=== PATIENT | male | born 1990 | race Caucasian/White ===

== ENCOUNTER 2017-08-08 06:37 | Emergency (ER) | payer SELFPAY ==
[~2017-08-08] VITALS: Ht 175.3 cm; Wt 88.0 kg
[2017-08-08 06:39] VITALS: BP 121/64; PULSE 97; RESP 15; TEMP 98.6; O2SAT 98
== END 2017-08-08 07:20 | disposition left against medical advice (07) ==
LOC: NEPE 06:37
DX: R10.9 Unspecified abdominal pain (principal)
CPT/HCPCS: 99281